=== PATIENT | male | born 1955 | race Caucasian/White ===

== ENCOUNTER → 2017-10-02 | Outpatient (CLI) | payer OTHER ==
--- NOTE | 2017-10-02 15:51 | Diagnostic Imaging Report ---
PROCEDURE:X-RAY ABDOMEN - KUB COMPARISON:None. INDICATIONS:CALCULUS OF KIDNEY FINDINGS: There is an 8 mm calcification overlying the right lower pole kidney. Additional 5 mm calcification projects over the left mid kidney and 4 mm calcification projects over the left lower kidney. There are no calcifications projected over the expected course of the ureters or bladder. There is a non-obstructed bowel-gas pattern. Surgical clips project over right upper quadrant. Partially seen left hip arthroplasty. Clips project over the left upper thigh. There are no acute osseous abnormalities. The lung bases are clear. CONCLUSION: Calcifications projecting over the kidneys, likely reflecting renal stones, measuring up to 8 mm on the right and 5 mm on the left. No calcifications projected over the expected course of the ureters or bladder. Dictated by: GERI CASILLAS M.D. on 10/02/2017 at 15:55 Electronically approved by: GERI CASILLAS M.D. on 10/02/2017 at 15:55
== END ==
LOC: RAD 14:53
PROVIDERS: ATTEND Urology
DX: N20.0 Calculus of kidney (principal)
CPT/HCPCS: 74018

== ENCOUNTER → 2019-10-30 | Day surgery (SDC) | payer MEDICARE, OTHER ==
[2019-10-26 10:52] LABS: BASOPHILS % 0.6 % (0.0-1.0); EOSINOPHILS # (AUTO) 0.1 (0.0-0.4); EOSINOPHILS % 2.6 % (0.0-6.0); HEMATOCRIT 37.4 % (38.2-49.6); HEMOGLOBIN 12.2 g/dL (14.0-18.0); LYMPHOCYTES # (AUTO) 0.8 (1.0-3.2); LYMPHOCYTES % 18.1 % (18.0-39.1); MEAN CORPUSCULAR HEMOGLOBIN 28.4 pg (28-32); MEAN CORPUSCULAR HGB CONC 32.6 g/dL (31-35); MEAN CORPUSCULAR VOLUME 87.2 fL (81-99); MONOCYTES # (AUTO) 0.4 (0.2-0.8); MONOCYTES % 8.2 % (4.4-11.3); NEUTROPHILS # (AUTO) 3.3 (2.1-6.9); NEUTROPHILS % 70.3 % (38.7-80.0); PLATELET COUNT 180 x10e3/uL (140-360); RED BLOOD COUNT 4.29 x10e6/uL (4.3-5.7); RED CELL DISTRIBUTION WIDTH 15.6 % (11.7-14.4)
[2019-10-26 11:14] LABS: ANION GAP 15.1 mmol/L (8-16); CALCIUM 9.1 mg/dL (8.4-10.2); CREATININE, SERUM 1.85 mg/dL (0.72-1.25); POTASSIUM 3.1 mmol/L (3.5-5.1)
--- NOTE | 2019-10-26 12:23 | Diagnostic Imaging Report ---
EXAMINATION: CHEST 2 VIEWS INDICATION: Pre-operative COMPARISON: None FINDINGS: LINES/TUBES:None LUNGS:The lungs are well-inflated. No focal consolidation or pulmonary edema. PLEURA:No pleural effusion or pneumothorax. MEDIASTINUM:The cardiomediastinal silhouette appears normal in size and shape. BONES/SOFT TISSUES:No acute osseous injury. ABDOMEN:No free air under the diaphragm. IMPRESSION: No focal pneumonia or pulmonary edema. Signed by: Giovani Herrera MD on 10/26/2019 12:20 PM
[~2019-10-30] MED LIST: ALLOPURINOL300 MG PO; ATACAND32 MG PO; CEFTRIAXONE SOD 1 GM/NS 50 ML 50 ML IV ONE; HYDRALAZINE HCL 20 MG/ML VIAL ONE; IOPAMIDOL 300MG/ML 50ML INFUS..BTL IV ONE; LIDOCAINE HCL 2% LOCAL INJ 5 ML SDV VIAL INJ ONE; METFORMIN HCL500 MG PO; METOPROLOL SUCC50 MG PO; NIFEDIPINE10 MG PO; POTASSIUM CHLO10 ME1 PO; POTASSIUM CITR10 MEQ PO; PROPOFOL IV EMULSION 10 MG/ML 20 ML VIAL IV ONE; SEVOFLURANE INHAL SOLN 250 ML PEN BTL INH ONE
[2019-10-30 09:15] VITALS: BP 167/101
--- NOTE | 2019-11-02 10:21 | Operative Report ---
DATE OF PROCEDURE: 10/30/2019 SURGEON: Shabbir Rossi MD PREOPERATIVE DIAGNOSES: 1. Left ureteral calculus. 2. Microscopic hematuria. POSTOPERATIVE DIAGNOSES: 1. Left ureteral calculus. 2. Microscopic hematuria. PROCEDURES: 1. Cystourethroscopy with right ureteral catheterization and right retrograde pyelogram (separate procedure for microscopic hematuria). 2. Left ureteroscopy with laser lithotripsy and stent placement (entirely separate procedure for left ureteral calculus). 3. Supervision of fluoroscopy for ureteroscopic portion. 4. Interpretation of retrograde pyelography. ANESTHESIA: General ESTIMATED BLOOD LOSS: Minimal. COMPLICATIONS: None. INDICATIONS: Mr. Landrum is a very pleasant 64-year-old male with a history of a very large approximately 1.2 x 1 cm left mid ureteral calculi. He and I had a long discussion about alternatives, risks, and benefits of doing nothing, shock wave lithotripsy, ureteroscopy, percutaneous surgery or open surgery. He voiced understanding of the options, alternatives, the risks, and benefits and would like to proceed with laser lithotripsy. PROCEDURE IN DETAIL: After informed consent obtained, the patient was taken to the operative suite, place supine on the operative table, underwent general anesthesia by the Anesthesia Service, placed in dorsal lithotomy position, and sterilely prepped and draped for cystoscopy. A 21-Bahamian cystoscope was inserted per urethra and normal urethra was noted. Panendoscopy of the bladder revealed no tumors, no stones. Both ureteral orifices were in normal anatomic location and position and were seen to efflux clear urine. Bilateral retrograde pyelogram was performed. Right was normal. Left revealed a very large 12 x 10 mm mid ureteral calculus and proximal hydronephrosis. A guidewire could not be accessed. Ureteroscope was advanced to the level offending stone and utilizing 365 micron laser fiber, the stone was obliterated into multiple small fragments until visualization became impossible. At this time, was large enough, so we can deploy ureteral stents, so ureteral stent was deployed with a coil in renal pelvis and a coil in the bladder with expectations to return for cleanup procedure. Supervision of fluoroscopy and interpretation of retrograde pyelography: I was present for the entire procedure and supervised fluoroscopy. There was no radiologist present. Attention was turned towards the left and right ureters, catheterized with 5-Bahamian open-ended catheter. Retrograde pyelogram was performed on the right revealing a delicate ureter and delicate pelvocaliceal systems. On the left revealed a 12 x 10 mm mid ureteral calculus and proximal hydronephrosis. Postoperative views on left side revealed stent in adequate position. MD LLOYD Mcadams/ANGEL /[id number]
== END | disposition home or self-care (01) ==
LOC: OR 05:00
PROVIDERS: ATTEND Urology
DX: N13.2 Hydronephrosis with renal and ureteral calculous obstruction (principal); C61 Malignant neoplasm of prostate; N39.0 Urinary tract infection, site not specified; N28.1 Cyst of kidney, acquired; R35.1 Nocturia; E11.22 Type 2 diabetes mellitus with diabetic chronic kidney disease; I12.9 Hypertensive chronic kidney disease with stage 1 through stage 4 chronic kidney disease, or unspecified chronic kidney disease; N18.2 Chronic kidney disease, stage 2 (mild); M19.90 Unspecified osteoarthritis, unspecified site; F41.9 Anxiety disorder, unspecified; F32.9 Major depressive disorder, single episode, unspecified; Z88.6 Allergy status to analgesic agent; Z88.8 Allergy status to other drugs, medicaments and biological substances; Z01.810 Encounter for preprocedural cardiovascular examination; Z01.812 Encounter for preprocedural laboratory examination; Z01.818 Encounter for other preprocedural examination; Z11.59 Encounter for screening for other viral diseases; Z87.01 Personal history of pneumonia (recurrent)
CPT/HCPCS: 36415 ×2; 52356; 71046; 74420; 80048; 82948; 84132; 85025; 93005; C1758; C2617; J0360; J0696; J2001; J2704; Q9967; U0002

== ENCOUNTER → 2019-11-27 | Day surgery (SDC) | payer MEDICARE, OTHER ==
[2019-11-24 12:36] LABS: BASOPHILS # (AUTO) 0.1 (0.0-0.1); BASOPHILS % 0.8 % (0.0-1.0); EOSINOPHILS # (AUTO) 0.2 (0.0-0.4); EOSINOPHILS % 2.8 % (0.0-6.0); LYMPHOCYTES # (AUTO) 1.1 (1.0-3.2); LYMPHOCYTES % 18.1 % (18.0-39.1); MEAN CORPUSCULAR HEMOGLOBIN 28.6 pg (28-32); MEAN CORPUSCULAR HGB CONC 32.5 g/dL (31-35); MEAN CORPUSCULAR VOLUME 87.9 fL (81-99); MONOCYTES # (AUTO) 0.6 (0.2-0.8); MONOCYTES % 9.5 % (4.4-11.3); NEUTROPHILS # (AUTO) 4.2 (2.1-6.9); NEUTROPHILS % 68.1 % (38.7-80.0); PLATELET COUNT 195 x10e3/uL (140-360); RED BLOOD COUNT 4.55 x10e6/uL (4.3-5.7); RED CELL DISTRIBUTION WIDTH 15.1 % (11.7-14.4)
[~2019-11-27] MED LIST changes: +DEXAMETHASONE SOD PHOS INJ 4 MG/ML VIAL ONE; +FENTANYL CITRATE/PF 100MCG/2 ML INJ ONE; -HYDRALAZINE HCL 20 MG/ML VIAL ONE; +MIDAZOLAM HCL 2 MG/2 ML VIAL ONE; -PROPOFOL IV EMULSION 10 MG/ML 20 ML VIAL IV ONE; +PROPOFOL IV EMULSION 10 MG/ML 20 ML VIAL ONE; -SEVOFLURANE INHAL SOLN 250 ML PEN BTL INH ONE; +SEVOFLURANE INHAL SOLN 250 ML PEN BTL ONE
--- NOTE | 2019-11-27 07:15 | NUR ---
SPIRITUAL CARE - Pre-Surgery Assessment: Pt in bed. Pt's at bedside. Pt reported supportive attention from family and friends. Intervention: Spa Manager provided pastoral presence, hospitality, and sympathetic listening. Acquainted pt with availability of mule developer while hospitalized. Outcome: Pt expressed appreciation for visit. No need for follow up indicated at this time. JERSON [facility] Spiritual [facility] Department O: [phone]
[2019-11-27 09:10] VITALS: BP 148/81
--- NOTE | 2019-12-01 16:36 | Operative Report ---
DATE OF PROCEDURE: 11/27/2019 SURGEON: Shabbir Rossi MD PREOPERATIVE DIAGNOSES: 1. Left ureteral calculi. 2. Indwelling left ureteral stent. POSTOPERATIVE DIAGNOSES: 1. Left ureteral calculi. 2. Indwelling left ureteral stent. PROCEDURES: 1. Cystourethroscopy with removal of left indwelling stent (entirely separate procedure for diagnosis of left renal stent). 2. Left-sided ureteroscopy with laser lithotripsy (entirely separate procedure for the left ureteral calculus). 3. Supervision of fluoroscopy for ureteroscopy as well as stent removal portions. ANESTHESIA: General. ESTIMATED BLOOD LOSS: Minimal. COMPLICATIONS: None. INDICATIONS: Mr. Landrum is a very pleasant 64-year-old male with a history of left ureteral calculus and left hydronephrosis. He and I had a long discussion about alternatives, risks, and benefits of doing nothing, shockwave lithotripsy, ureteroscopy, percutaneous surgery, or open surgery. He voiced understanding of the options, alternatives, risks, and benefits and elected to proceed. PROCEDURE IN DETAIL: After informed consent was obtained, the patient was taken to the operative suite, placed supine on the operating table, underwent general anesthesia by the Anesthesia Service, placed in dorsal lithotomy position, and sterilely prepped and draped for cystoscopy. A 21-Czech cystoscope was inserted per urethra and normal urethra was noted. Panendoscopy of the bladder revealed no tumors, no stones. Both ureteral orifices were in normal anatomic location and position. A left ureteral stent was seen. It was grasped and removed. A guidewire was inserted. Ureteroscope was advanced to the level of ureteral calculi. Utilizing 365 micron of laser fiber, the stone was obliterated in multiple small fragments. Fluoroscopic exam showed no other stones. Ureteroscope was withdrawn. The safety wire was removed. The bladder was drained. The patient was awakened from anesthesia and transported to the recovery room in excellent condition. Supervision of fluoroscopy: I was present for the entire procedure and supervised fluoroscopy for both ureteroscopic and stent removal portions. Shabbir Rossi MD ES/MODL /[id number]
== END | disposition home or self-care (01) ==
LOC: OR 06:00
PROVIDERS: ATTEND Urology
DX: N20.1 Calculus of ureter (principal); N13.30 Unspecified hydronephrosis; N28.1 Cyst of kidney, acquired; N39.0 Urinary tract infection, site not specified; R35.1 Nocturia; E11.22 Type 2 diabetes mellitus with diabetic chronic kidney disease; I12.9 Hypertensive chronic kidney disease with stage 1 through stage 4 chronic kidney disease, or unspecified chronic kidney disease; N18.2 Chronic kidney disease, stage 2 (mild); M19.90 Unspecified osteoarthritis, unspecified site; F41.9 Anxiety disorder, unspecified; Z46.6 Encounter for fitting and adjustment of urinary device; Z01.812 Encounter for preprocedural laboratory examination; Z11.59 Encounter for screening for other viral diseases; Z88.6 Allergy status to analgesic agent; Z88.8 Allergy status to other drugs, medicaments and biological substances; Z79.84 Long term (current) use of oral hypoglycemic drugs; Z87.19 Personal history of other diseases of the digestive system; Z85.46 Personal history of malignant neoplasm of prostate; Z80.42 Family history of malignant neoplasm of prostate; Z84.1 Family history of disorders of kidney and ureter
CPT/HCPCS: 36415 ×2; 52353; 82948; 85025; 88300; C1758; C1769; J0696; J1100; J2001; J2250; J2704; J3010; Q9967; U0002; 76000

== ENCOUNTER → 2024-11-06 | Day surgery (SDC) | payer MEDICARE, OTHER ==
[2024-11-04 16:12] LABS: BASOPHILS % 0.5 % (0.0-1.0); EOSINOPHILS % 1.1 % (0.0-6.0); LYMPHOCYTES % 17.9 % (18.0-39.1); MONOCYTES % 7.9 % (4.4-11.3); NEUTROPHILS % 72.3 % (38.7-80.0); RED CELL DISTRIBUTION WIDTH 13.4 % (11.7-14.4)
[2024-11-04 16:33] LABS: EST GLOMERULAR FILTRATION RATE 39.0 ML/MIN (>=60)
[~2024-11-06] MED LIST changes: -CEFTRIAXONE SOD 1 GM/NS 50 ML 50 ML IV ONE; +DEXAMETHASONE SOD PHOS INJ 4 MG/ML SDV ONE; -DEXAMETHASONE SOD PHOS INJ 4 MG/ML VIAL ONE; +EPHEDRINE SULFATE INJ 50 MG/ML VIAL ONE; +FARXIGA10 MG PO; +GALANTAMINE HBR8 MG PO; -IOPAMIDOL 300MG/ML 50ML INFUS..BTL IV ONE; +LEXAPRO10 MG PO; +MEMANTINE HCL10 MG PO; -MIDAZOLAM HCL 2 MG/2 ML VIAL ONE; +ONDANSETRON HCL INJ 2MG/ML 2ML 2 MG/ML VIAL ONE; +PHENYLEPHRINE HCL 1% 10 MG/ML VIAL ONE; -SEVOFLURANE INHAL SOLN 250 ML PEN BTL ONE; +SODIUM CHLORIDE 0.9% INJ 10 ML VIAL ONE; +SPIRONOLACTONE25 MG PO; +TRICOR145 MG PO; +VASCEPA1 GM PO; +VITAMIN C500 MG PO
[2024-11-06] MEDS: CEFTRIAXONE 1 GM VIAL ONE (07:03)
[2024-11-06] MEDS: LACTATED RINGER'S 1,000 ML ONE (07:04)
[2024-11-06] MEDS: ACETAMINOPHEN/CODEINE 300MG - 30MG TAB ONE (10:01)
[2024-11-06 10:05] VITALS: BP 144/82; PULSE 77; RESP 18; O2SAT 97
== END | disposition home or self-care (01) ==
LOC: OR 06:33
PROVIDERS: ATTEND Urology
DX: N20.1 Calculus of ureter (principal); N20.0 Calculus of kidney; N39.0 Urinary tract infection, site not specified; R35.1 Nocturia; E11.22 Type 2 diabetes mellitus with diabetic chronic kidney disease; I12.9 Hypertensive chronic kidney disease with stage 1 through stage 4 chronic kidney disease, or unspecified chronic kidney disease; N18.2 Chronic kidney disease, stage 2 (mild); E78.5 Hyperlipidemia, unspecified; M10.9 Gout, unspecified; F03.90 Unspecified dementia, unspecified severity, without behavioral disturbance, psychotic disturbance, mood disturbance, and anxiety; Z88.6 Allergy status to analgesic agent; Z88.1 Allergy status to other antibiotic agents; Z88.8 Allergy status to other drugs, medicaments and biological substances; Z01.810 Encounter for preprocedural cardiovascular examination; Z01.812 Encounter for preprocedural laboratory examination; Z01.818 Encounter for other preprocedural examination; Z79.84 Long term (current) use of oral hypoglycemic drugs; Z79.85 Long-term (current) use of injectable non-insulin antidiabetic drugs; Z79.899 Other long term (current) drug therapy; Z85.828 Personal history of other malignant neoplasm of skin; Z92.21 Personal history of antineoplastic chemotherapy; Z92.3 Personal history of irradiation; Z80.42 Family history of malignant neoplasm of prostate; Z84.1 Family history of disorders of kidney and ureter
CPT/HCPCS: 36415; 71046; 74420; 80048; 82948; 85025; 88300; 93005; C1758; C1769; J0696; J1100; J2003; J2371; J2405